=== PATIENT | female | born 1985 | race Asian ===

== ENCOUNTER 2017-12-30 00:28 | Observation (INO) | payer OTHER | END 2017-12-30 01:52 | disposition home or self-care (01) | LOC: FLD 00:28 | PROVIDERS: ADMIT Obstetrics & Gynecology; ATTEND Obstetrics & Gynecology | DX: O36.8130 Decreased fetal movements, third trimester, not applicable or unspecified (principal); Z3A.38 38 weeks gestation of pregnancy | CPT/HCPCS: 59025; G0378 ==

== ENCOUNTER 2017-12-31 18:55 | Inpatient (IN) | payer OTHER ==
[2017-12-31] MEDS ORDERED: OLIVE OIL 118 ML BTL MISC PRN (19:37)
[2017-12-31] MEDS ORDERED: OXYTOCIN/RINGERS LACTATE 1,000 ML IV PRN (19:37)
[2017-12-31] MEDS ORDERED: EPSOM SALT 454 GM TP PRN (19:37)
[2017-12-31] MEDS ORDERED: LIDOCAINE 1% 300 MG/30 ML SDV SC PRN (19:37)
[2017-12-31] MEDS ORDERED: IBUPROFEN 600 MG TAB PO PRN (19:37)
[2017-12-31] MEDS ORDERED: TERBUTALINE SULFATE 1 MG/ML VIAL IV PRN (19:37)
[2017-12-31] MEDS ORDERED: MISOPROSTOL 200 MCG TAB PR PRN (19:37)
[2017-12-31] MEDS ORDERED: LR 1,000 ML IV PRN (19:37)
[2017-12-31 20:20] LABS: PLATELET COUNT 225 10^3/uL (150-400)
[2017-12-31] MEDS ORDERED: PHENYLEPHRINE HCL 100 MCG/ML SYR ONE (23:05)
[2017-12-31] MEDS ORDERED: BUPIVACAINE 0.25% 30 ML SDV ONE (23:05)
[2017-12-31] MEDS ORDERED: fentaNYL 2MCG/ML/BUP 0.1% RTU 100 ML BAG EP ONE (23:05)
[2017-12-31] MEDS ORDERED: LIDOCAINE 1% 300 MG/30 ML SDV ONE (23:28)
[2017-12-31] MEDS ORDERED: OLIVE OIL 118 ML BTL ONE (23:29)
[2017-12-31] MEDS ORDERED: OXYTOCIN 10 UNIT/ML VIAL ONE (23:29)
[2017-12-31] MEDS ORDERED: TERBUTALINE SULFATE 1 MG/ML VIAL ONE (23:29)
[2017-12-31] MEDS ORDERED: MISOPROSTOL 200 MCG TAB ONE (23:29)
[2017-12-31] MEDS ORDERED: AMMONIA AROMATIC 1 EACH AMP IH ONE (23:29)
[2017-12-31] MEDS ORDERED: ONDANSETRON 4 MG/2 ML VIAL IVP PRN (23:34)
[2017-12-31] MEDS ORDERED: PHENYLEPHRINE HCL 100 MCG/ML SYR IVP PRN (23:34)
[2017-12-31] MEDS ORDERED: NALOXONE HCL 0.4 MG/ML INJ IVP PRN (23:34)
--- NOTE | 2017-12-31 23:36 | PREANESOB ---
Obstetric Pre-Anesthesia Info - General Info Proposed Procedure: JEANNIE : 3 Para: 1 ROSALVA: 01/11/18 Gestational Age: 38 week(s) and 3 day(s) - Info Status: Full Term FHR Pattern: Reassuring - Labor Status Labor Epidural: Yes Anesthesia Allergies/Adverse Reactions: Allergy/AdvReac Type Severity Reaction Status Date / Time No Known Allergies Allergy Unverified 12/30/17 01:08 Visit Medications: Generic Name Dose Route Start Last Admin Trade Name Freq PRN Reason Stop Dose Admin Diphenhydramine HCl 25 - 50 mg 12/31/17 23:34 Benadryl Injection IVP 06/29/18 23:33 Q6HRS PRN Itching Lactated Ringer's 1,000 mls @ 0 mls/hr 12/31/17 19:37 12/31/17 22:40 Lr IV 01/01/18 19:36 1,000 mls PRN PRN Administration SEE PROTOCOL CONDITIONS Protocol Per Protocol Oxytocin/Lactated Ringer's 1,000 mls @ 125 mls/hr 12/31/17 19:37 Pitocin 20 Units/Lr (Premix) IV PRN PRN Post bleeding Fentanyl/Bupivacaine HCl 100 mls @ 0 mls/hr 12/31/17 23:45 Fentanyl/Bupivacaine/Ns 2 Mcg/Ml 0.1% (Premix EP 01/10/18 23:44 CONT KRISTI Protocol As Directed Lactated Ringer's 500 mls @ 0 mls/hr 12/31/17 23:45 Lr IV 06/29/18 23:44 CONT KRISTI As Directed Ibuprofen 600 mg 12/31/17 19:37 Motrin PO ONCE PRN post , pain Lidocaine HCl 300 mg 12/31/17 19:37 Lidocaine Hcl 1% SC 06/29/18 19:36 ONCE PRN episiotomy Magnesium Sulfate 454 gm 12/31/17 19:37 Epsom Salt TP 06/29/18 19:36 Q1H PRN perineal discomfort Misoprostol 800 - 1,000 mcg 12/31/17 19:37 Cytotec HI ONCE PRN Vaginal Atony/Bleeding Naloxone HCl 0.4 mg 12/31/17 23:34 Narcan IVP 06/29/18 23:33 PRN PRN Respiratory depression [place] 118 ml 12/31/17 19:37 Sweet Oil MISC 06/29/18 19:36 ONCE PRN perineal massage Ondansetron HCl 4 mg 12/31/17 23:34 Zofran IVP 01/01/18 23:33 Q4HRS PRN Nausea/Vomiting, Can't Take PO Phenylephrine HCl 100 mcg 12/31/17 23:34 Neosynephrine IVP 06/29/18 23:33 .Q2M PRN Hypotension Terbutaline Sulfate 0.25 mg 12/31/17 19:37 Brethine IV 06/29/18 19:36 ONCE PRN Tachysystole Discontinued Medications Generic Name Dose Route Start Last Admin Trade Name Freq PRN Reason Stop Dose Admin Ammonia (Aromatic Spirit) Confirm 12/31/17 23:29 Ammonia Aromatic Administered 12/31/17 23:30 Dose 1 each IH .STK-MED ONE Bupivacaine HCl Confirm 12/31/17 23:05 Sensorcaine 0.25% Sdv Administered 12/31/17 23:06 Dose 30 ml .ROUTE .STK-MED ONE Fentanyl/Bupivacaine HCl Confirm 12/31/17 23:05 Fentanyl/Bupivacaine/Ns 2 Mcg/Ml 0.1% (Premix Administered 12/31/17 23:06 Dose 100 ml EP .STK-MED ONE Lidocaine HCl Confirm 12/31/17 23:28 Lidocaine Hcl 1% Administered 12/31/17 23:29 Dose 300 mg .ROUTE .STK-MED ONE Misoprostol Confirm 12/31/17 23:29 Cytotec Administered 12/31/17 23:30 Dose 1,000 mcg .ROUTE .STK-MED ONE [place] Confirm 12/31/17 23:29 Sweet Oil Administered 12/31/17 23:30 Dose 118 ml .ROUTE .STK-MED ONE Oxytocin Confirm 12/31/17 23:29 Pitocin Administered 12/31/17 23:30 Dose 40 unit .ROUTE .STK-MED ONE Phenylephrine HCl Confirm 12/31/17 23:05 Neosynephrine Administered 12/31/17 23:06 Dose 1,000 mcg .ROUTE .STK-MED ONE Terbutaline Sulfate Confirm 12/31/17 23:29 Brethine Administered 12/31/17 23:30 Dose 1 mg .ROUTE .STK-MED ONE - Anesthesia History Response to Local Anesthetics: Normal Anesthesia & Operative History: No Prior Problems Family Anesthesia History: Negative - Vital Signs Height/Weight (Nursing): Height 160 cm Weight 68 kg - Focused Exam Neck exam: FROM Mallampati Score: Class 2 Mouth exam: normal dental/mouth exam Pulmonary: no respiratory distress Cardiovascular: regular rate and rhythym Labs: 12/31/17 19:55 Patient ABO/Rh O POSITIVE 12/31/17 19:55 - Plan Anesthetic Plan: JEANNIE Consent Signed and on Chart: Yes Patient/Guardian Understands and Agrees to Plan: Yes Urgent/Emergent Case: Jagjit ruiz completed preop but documented later for safe timely pt care
[2017-12-31] MEDS ORDERED: LR 500 ML IV SCH (23:45)
[2017-12-31] MEDS ORDERED: fentaNYL 2MCG/ML/BUP 0.1% RTU 100 ML EP SCH (23:45)
[2018-01-01] MEDS ORDERED: OXYTOCIN/LR *STANDARD DOSE PROTOCOL IV SCH (01:30)
[2018-01-01] MEDS ORDERED: HYDROCORTISONE 0.5% CREAM TP PRN (04:58)
[2018-01-01] MEDS ORDERED: DOCUSATE SODIUM 100 MG CAP PO PRN (04:58)
[2018-01-01] MEDS ORDERED: SIMETHICONE 80 MG TAB CHEW PO PRN (04:58)
--- NOTE | 2018-01-01 05:04 | OBDEL ---
Info Type: Vaginal Presentation at Delivery: Vertex (ROT) L&D Analgesia/Anesthesia Type: Epidural GBS+: No Intrapartum Medications: Generic Name Dose Route Start Last Admin Trade Name [place] PRN Reason Stop Dose Admin Lactated Ringer's 1,000 mls @ 0 mls/hr 12/31/17 19:37 12/31/17 22:40 Lr IV 01/01/18 19:36 1,000 mls PRN PRN Administration SEE PROTOCOL CONDITIONS Protocol Per Protocol Oxytocin/Lactated Ringer's 500 mls @ 0 mls/hr 01/01/18 01:30 01/01/18 01:40 Pitocin 30 Units/Lr (Premix) IV 06/30/18 01:29 500 mls CONT KRISTI Administration Protocol Per Protocol - Hospital Course Intrapartum: 01/01/18 05:02 IUP @ 38 4/7 wks with SROM; uncomplicated Indications for Delivery: Spontaneous Labor Vaginal Delivery - Delivery Provider Delivery Physician/CNM: Nany Huff - Labor and Delivery Onset of Contractions Date: 12/31/17 Onset of Contractions Time: 23:00 Onset of Contractions Type: Spontaneous Rupture of Membranes Date: 12/31/17 Rupture of Membranes Time: 18:00 Rupture of Membranes Type: Spontaneous Amniotic Fluid Color: Clear Dilation Complete Date: 01/01/18 Dilation Complete Time: 03:45 Placenta Delivery Date: 01/01/18 Placenta Delivery Time: 04:48 Total Hours of Labor: 5 Laceration: Other (Specify) (perineum intact and no vag lacs) Repair: Other (Specify) (none) Vaginal Sponge Count Correct: Yes Vaginal Needle Count Correct: Yes Vaginal Sweep Performed: Yes EBL: 300 cc Delivery Events: Nuchal Cord (x 1 loose - slipped on perineum; body cord) Delivery Comment: Uncomplicated Data ROSALVA: 01/11/18 Gestational Age: 38 week(s) and 4 day(s) Matthew Delivery Date: 01/01/18 Delivery Time: 04:43 Sex of : Male Score (1 Min): 8 Score (5 Min): 9 ("Jonatan") ICD10 Worksheet Patient Problems: Problems Problem Status Onset Leakage of amniotic fluid Acute (spontaneous vaginal delivery) Acute - ICD10 Problem Qualifiers (1) Leakage of amniotic fluid (2) (spontaneous vaginal delivery)
--- NOTE | 2018-01-01 06:19 | GHP ---
DATE OF ADMISSION: 12/31/2017 DIAGNOSES: 1. Intrauterine at 38 weeks and 4 days. 2. Spontaneous rupture of membranes. HISTORY OF PRESENT ILLNESS: The patient is a 32-year-old 3, para 1-0-1- 1 at 38 and 4 weeks with estimated due date 01/11/2018, by LMP 04/06/2017, and consistent with ultrasound at 8 weeks and 4 days. The patient presents to Labor and Delivery with complaints of leakage of clear fluid noted at 6 p.m. States irregular contractions. Good movement noted. Denies any vaginal bleeding or spotting. The patient was examined about a week ago, and noted to be 2 cm dilated. Patient has good care at [facility], and presented in her first trimester. mostly has been uncomplicated. Twenty-week ultrasound was normal with an estimated weight in 60 percentile, and posterior placenta. The patient received Tdap as well as flu vaccine. The patient developed anemia in . GBS culture is negative. PAST OB HISTORY: In 2014, she had a SAB. In 2016, she had a viable male at 39 weeks 3 days via spontaneous vaginal delivery, uncomplicated, weighing 7 pounds 6 ounces. LINE SERVICER HISTORY: Menarche age 12-13. Cycles are every 28-31 days, and bleeds for 7 days. LMP 04/06/2017. Positive test 05/08/2017. The patient denies history of abnormal Pap smears or any exposure to STDs. The patient uses condoms. MEDICATIONS: Include vitamins, DHA, and iron. ALLERGIES: No known drug allergies. PAST MEDICAL HISTORY: Unremarkable. PAST SURGICAL HISTORY: [place] teeth extraction. FAMILY HISTORY: Maternal grandfather, heart disease. Maternal grandmother, diabetes. Maternal aunt, leukemia. SOCIAL HISTORY: The patient is . She lives with her and their son, Marcelo. She is an instructional support assistant at . Denies any alcohol, tobacco, or illicit drug use during the . REVIEW OF SYSTEMS: Ten-point review of systems is negative. Pertinent positives noted in HPI. LABS: First trimester H and H 14.1 and 41.2, platelets 259. Blood type O positive, antibody negative. RPR nonreactive. Rubella immune. Hepatitis B surface antigen negative. HIV negative. Trio screen and standard panel negative. UA, culture and UDS negative. Pap smear negative, with negative HPV. Gonorrhea and chlamydia cultures negative. AFP negative. Innatal screen negative. Third trimester H and H 12.3 and 36.5. One-hour Glucola 113. Varicella and parvovirus immune. GBS culture is negative. ON ADMISSION: VITAL SIGNS: Stable. Patient is afebrile at 36.7, heart rate 92 , blood pressure 112/76, respirations 16. GENERAL: The patient is well- nourished, well-developed female. Alert and oriented x3. No apparent distress. SKIN: Warm, dry. No rashes. NEUROMUSCULAR: Grossly intact. CARDIOVASCULAR: Regular rate and rhythm. LUNGS: Clear to auscultation bilaterally. ABDOMEN: Gravid, soft, nontender. PELVIC: The patient is noted to be grossly ruptured, positive Nitrazine and found to be 3 cm dilated, 80% effaced, -1 station, cephalic. EXTREMITIES: Normal to inspection without calf tenderness or edema. ASSESSMENT: Patient is a 32-year-old 3, para 1-0-1-1 at 38 weeks and 4 days who presents with spontaneous rupture of membranes PLAN: 1. Admit to Labor and Delivery for expectant management. 2. GBS culture is negative. No prophylactic antibiotics needed. 3. Patient does desire an epidural. 4. If no contractions or cervical change noted over the next few hours, will augment with Pitocin. 5. Anticipate spontaneous vaginal delivery. /[id number]/MODL MTDD
--- NOTE | 2018-01-01 12:53 | POSTANESTH ---
Post Anesthetic Evaluation Cardiovascular Status: Normal, Stable Respiratory Status: Normal, Stable Level of Consciousness/Mental Status: Can Participate in Eval, Alert and Oriented Pain Control: Adequate, Prn Tx Ordered Nausea/Vomiting Control: Adequate, Prn Tx Ordered Complications Possibly Related to Anesthesia: None Noted
[2018-01-01] MEDS: ACETAMINOPHEN 325 MG TAB PO SCH ×2 (12:57→19:01)
[2018-01-01] MEDS: IBUPROFEN 600 MG TAB PO SCH ×2 (14:25→19:01)
[2018-01-02] MEDS: ACETAMINOPHEN 325 MG TAB PO SCH ×4 (01:00→18:38)
[2018-01-02] MEDS: IBUPROFEN 600 MG TAB PO SCH ×4 (01:06→21:13)
--- NOTE | 2018-01-02 20:44 | OBPP ---
Progress Note Assessment/Plan: Assessment: PPD1 s/p . Routine cares, no issues. No Hct this AM - normal on admission, minimal lochia. Likely home tomorrow. Rh pos, Rubella immune JM Subjective/ Course: Doing great this AM, BF going well, no issues. Objective: 12/31/17 19:55 Patient ABO/Rh O POSITIVE 12/31/17 19:55 Temp Pulse Resp BP Pulse Ox 36.6 C 75 14 108/70 95 01/02/18 08:00 01/02/18 08:00 01/02/18 08:00 01/02/18 08:00 01/02/18 08:00 Uterine Position/Fundal Height: At Umbilicus Uterine Tone: Firm
[2018-01-03] MEDS: ACETAMINOPHEN 325 MG TAB PO SCH ×3 (00:35→12:26)
[2018-01-03] MEDS: IBUPROFEN 600 MG TAB PO SCH ×2 (03:15→12:26)
--- NOTE | 2018-01-03 09:30 | OBPP ---
Progress Note Assessment/Plan: Assessment:32 G3 now P2, PPD#2 s/p . Doing well. Plan:DC home. See dc summary. PP dc instructions reviewed, including ssx pp depression. Eileen Valle MD, [facility] 01/03/18 09:27 Subjective/ Course: Doing great this AM, BF going well, no issues. 01/03/18 09:30 Doing well. BF going well - though some difficulty latching on the left. Ambulating, voiding and francisco javier reg diet without problems. Desires homegoing this morning. Objective: 12/31/17 19:55 Patient ABO/Rh O POSITIVE 12/31/17 19:55 Temp Pulse Resp BP Pulse Ox 36.9 C 73 16 112/72 94 01/02/18 21:44 01/02/18 21:44 01/02/18 21:44 01/02/18 21:44 01/02/18 21:44 Current VS from this mornin.9 72 16 112/80 96% on RA gen - pleasant, NAD CV - RRR chest - CTAB abd - soft, + BS, fundus firm u-3 ext - trace pitting edema, calves NT, Ag's neg declined perineum exam Uterine Position/Fundal Height: Umbilicus -3 Uterine Tone: Firm
--- NOTE | 2018-01-03 09:43 | OBGCSDC ---
General Delivery Information - General Info : 3 Para: 2 Abortions: 1 Type: Vaginal L&D Analgesia/Anesthesia Type: Epidural Admission Date: 12/31/17 Labs: Patient ABO/Rh O POSITIVE 12/31/17 19:55 Hct 37.5 % (38.0-47.0) L 12/31/17 19:55 - Hospital Course Intrapartum: 01/01/18 05:02 IUP @ 38 4/7 wks with SROM; uncomplicated : Doing great this AM, BF going well, no issues. 01/03/18 09:30 Doing well. BF going well - though some difficulty latching on the left. Ambulating, voiding and francisco javier reg diet without problems. Desires homegoing this morning. Vaginal - Delivery Provider Delivery Physician/CNM: Nany Huff - Diagnosis Labor: Spontaneous Rupture of Membranes Type: Spontaneous Amniotic Fluid Color: Clear Laceration: Other (Specify) (perineum intact and no vag lacs) Repair: Other (Specify) (none) Delivery Events: Nuchal Cord (x 1 loose - slipped on perineum; body cord) - Delivery EBL: 300 cc Data ROSALVA: 01/11/18 Gestational Age: 38 week(s) and 6 day(s) Matthew Delivery Date: 01/01/18 Delivery Time: 04:43 Sex of : Male Weight (gm): 3254 g Score (1 Min): 8 Score (5 Min): 9 Discharge Information - Discharge Information Instruction/Follow Up: See Instruction Sheet, Four Weeks (Free Therapist visit at [facility] with [facility]), Six Weeks ( check with physician at [facility])
[2018-01-03 10:05] VITALS: BP 112/80
== END 2018-01-03 15:00 | disposition home or self-care (01) | DRG 807 ==
LOC: FLD 18:55 → OBSVTOIN 19:38 → FOB 01-01 07:19
PROVIDERS: ADMIT Obstetrics & Gynecology; ATTEND Obstetrics & Gynecology
PROC: 10E0XZZ Delivery of Products of Conception, External Approach (ICD-10-PCS; principal; 2018-01-01)
DX: O69.82X0 Labor and delivery complicated by other cord entanglement, without compression, not applicable or unspecified (principal); Z37.0 Single live birth; Z3A.38 38 weeks gestation of pregnancy
CPT/HCPCS: J2370; J2590; J3105